=== PATIENT | female | born 1995 | race Caucasian/White ===

== ENCOUNTER 2019-03-14 23:50 | Inpatient (IN) | payer OTHER ==
[2019-03-15] MEDS ORDERED: BUTORPHANOL TARTRATE 2 MG/ML VIAL ONE (01:11)
[2019-03-15] MEDS ORDERED: PROMETHAZINE HCL 25 MG/1 ML VIAL ONE (01:12)
[2019-03-15] MEDS ORDERED: PROMETHAZINE HCL 25 MG/1 ML VIAL IVPUSH ONE (01:15)
[2019-03-15] MEDS ORDERED: BUTORPHANOL TARTRATE 1 MG/ML VIAL IVPUSH ONE (01:15)
[2019-03-15 01:32] LABS: BASO % 0.3 % (0-2.0); EOS % 1.2 % (0-4.5); HEMATOCRIT 32.5 % (32.4-45.2); LYMPH % 19.7 % (8-40); MCH 28.4 pg (25.7-33.7); MCHC 33.8 g/dl (32.0-36.0); MONO % 8.6 % (3.8-10.2); NEUT % 70.2 % (42.8-82.8); RBC 3.87 M/mm3 (3.60-5.2); RDW 14.5 % (11.6-15.6); WHITE BLOOD COUNT 10.3 K/mm3 (4.0-10.0)
[2019-03-15 01:49] LABS: INR 0.92 (0.83-1.09); PROTHROMBIN TIME (PATIENT) 10.8 SEC (9.7-13.0)
[2019-03-15 01:51] LABS: ACTIVATED PTT 29.2 SECONDS (25.2-36.5)
[2019-03-15 02:25] LABS: ANION GAP 9 MMOL/L (8-16); BLOOD UREA NITROGEN 11 mg/dL (7-18); CALCIUM 9.1 mg/dL (8.5-10.1); CHLORIDE 104 mmol/L (98-107); CO2 22 mmol/L (21-32); CREATININE 0.6 mg/dL (0.55-1.3); GLUCOSE,RANDOM 65 mg/dL (74-106); SODIUM 135 mmol/L (136-145)
[2019-03-15 03:00] LABS: MEAN PLT VOLUME 11.7 fl (7.5-11.1)
[2019-03-15 03:01] LABS: PLATELET COUNT 123 K/MM3 (134-434)
[2019-03-15 03:02] LABS: PLATELET ESTIMATE ADEQUATE
[2019-03-15 03:17] VITALS: BMI 25.4
[2019-03-15] MEDS ORDERED: FENTANYL/BUPIVACAINE/NS/PF - PCEA - 50 ML DISP.SYRIN EP ONE ×2 (04:02→08:38)
[2019-03-15] MEDS ORDERED: NALOXONE HCL 0.4 MG/ML VIAL IVPUSH PRN (04:08)
[2019-03-15] MEDS ORDERED: LIDO 2%/EPI 1:200000 PRESRVFRE (20 ML SDVIAL) ONE (04:11)
[2019-03-15] MEDS ORDERED: FENTANYL/BUPIVACAINE/NS/PF - PCEA - 50 ML DISP.SYRIN EP SCH (04:15)
[2019-03-15] MEDS ORDERED: ELECTROLYTE-148 SOLN 1,000 ML IV SCH (04:20)
[2019-03-15] MEDS ORDERED: DEXTROSE 5%-LACTATED RINGERS 1,000 ML IV SCH (05:30)
[2019-03-15] MEDS ORDERED: ALBUTEROL SO4 8 GM HFA INHALER IH PRN ×5 (06:47→06:55)
--- NOTE | 2019-03-15 06:55 | HP ---
Past Medical History - Primary Care Physician PCP:: Larry Jensen - Admission Chief Complaint: 39 weeks, labor History of Present Illness: 23 yo f , 39.3 weeks, c/o contraction, no rom, cx 3 cm 80 vx -2 mi, fhr cat 1, regular contraction History Source: Patient Limitations to Obtaining History: No Limitations - Past Medical History Pulmonary: Yes: Asthma ...: 1 ...Para: 0 ...Term: 0 ...: 0 ...Spon : 0 ...Induced : 0 ...Multiple Gestation: 0 ...LMP: 06/11/18 ... Weeks Gestation by Dates: 39.3 ...EDC by Dates: 03/18/19 - Past Surgical History Hx Myomectomy: No Hx Transabdominal Cerclage: No - Smoking History Smoking history: Never smoked Aproximately how many cigarettes per day: 0 - Alcohol/Substance Use Hx Alcohol Use: No History of Substance Use: reports: None - Social History Usual Living Arrangement: Yes: With Spouse History of Recent Travel: No Home Medications - Allergies Allergies/Adverse Reactions: Allergies Allergy/AdvReac Type Severity Reaction Status Date / Time No Known Allergies Allergy Verified 03/12/19 22:28 - Home Medications Home Medications: Ambulatory Orders Albuterol Sulfate Inhaler - [Ventolin HFA Inhaler -] 1 - 2 inh PO Q4H PRN Vitamins (Sjr) - 1 tab PO DAILY 03/12/19 Review of Systems - Review of Systems Constitutional: reports: No Symptoms Eyes: reports: No Symptoms HENT: reports: No Symptoms Neck: reports: No Symptoms Cardiovascular: reports: No Symptoms Respiratory: reports: No Symptoms Gastrointestinal: reports: No Symptoms Genitourinary: reports: Frequency Breasts: reports: No Symptoms Reported Musculoskeletal: reports: No Symptoms Integumentary: reports: No Symptoms Neurological: reports: No Symptoms Endocrine: reports: No Symptoms Hematology/Lymphatic: reports: No Symptoms Psychiatric: reports: No Symptoms Physical Exam - Maternity Vital Signs: Vital Signs Temperature 98.3 F 03/15/19 06:00 Pulse Rate 75 03/15/19 06:40 Respiratory Rate 18 03/15/19 06:40 Blood Pressure 124/61 03/15/19 06:40 O2 Sat by Pulse Oximetry (%) 100 03/15/19 06:40 Constitutional: Yes: Well Nourished, No Distress, Calm Eyes: Yes: WNL, Conjunctiva Clear, EOM Intact HENT: Yes: WNL, Atraumatic, Normocephalic Neck: Yes: WNL, Supple, Trachea Midline Cardiovascular: Yes: WNL, Regular Rate and Rhythm Breast(s): Yes: WNL - Abdominal Exam/OB Fundal Height: 38 Number of Fetuses: Single Presentation: Vertex Contractions: Yes Regularity: Regular Intensity: Mod/Strong Monitor Mode: External Heart Rate Location: [facility] Category: I Accelerations: Uniform Decelerations: None - Vaginal Exam/OB Vaginal Bleediing: No Presentation: Vertex/Position Station: -2 - Physical Exam Musculoskeletal: Yes: WNL Edema: Yes Edema: LLE: Trace, RLE: Trace Deep Tendon Reflex Grade: Normal +2 Psychiatric: Yes: WNL - Labs Lab Results: CBC, BMP 03/15/19 00:45 03/15/19 00:45 Hemorrhage Risk Assessment - Risk Factors Medium Risk Factors: Yes: None High Risk Factors: Yes: None Risk Score: 1 Risk Level: Medium Risk Problem List - Problems (1) with 39 completed weeks gestation Code(s): Z3A.39 - 39 WEEKS GESTATION OF (2) Labor established Code(s): NZB1985 - Assessment/Plan admit, fhm, , pain management
--- NOTE | 2019-03-15 07:09 | PN ---
Progress Note (short form) - Note Progress Note: cx 7 cm, 80 vx -1 .arom clear fluid, fhr cat 1 tracing , irregular contraction , advised pitocin stimulation, risks and benfit discussed with patient Problem List - Problems (1) with 39 completed weeks gestation Code(s): Z3A.39 - 39 WEEKS GESTATION OF (2) Labor established Code(s): GNC7771 -
[2019-03-15] MEDS ORDERED: OXYTOCIN 30 UNITS in 0.9% NS 30 UNIT/500 ML INFUS.BAG IVPB SCH (07:30)
[2019-03-15] MEDS ORDERED: TUBERCULIN PPD 5 TU/0.1ML SYRINGE (IN PATIENT USE ONLY) ID ONE (08:00)
[2019-03-15] MEDS ORDERED: LIDOCAINE HCL 1% PRESERVATIVE FREE - 30ML VIAL ONE (09:38)
[2019-03-15] MEDS ORDERED: WITCH HAZEL 50% (TUCKS) 40 PAD/JAR PAD TP PRN (10:48)
[2019-03-15] MEDS ORDERED: ACETAMINOPHEN 325 MG TABLET (FP) ONE (10:48)
[2019-03-15] MEDS ORDERED: BISACODYL 10 MG SUPP.RECT RC PRN (10:48)
[2019-03-15] MEDS ORDERED: METHYLERGONOVINE MALEATE 0.2 MG/1 ML AMP IM PRN (10:48)
[2019-03-15] MEDS ORDERED: BENZOCAINE 20% 57 GM BOTTLE TP PRN (10:48)
[2019-03-15] MEDS ORDERED: BENZOCAINE 28 GM HEMORRHOIDAL OINTMENT TP PRN (10:48)
[2019-03-15] MEDS ORDERED: D5W-LR W/ 20 UNITS OXYTOCIN 20 UNIT/1,000 ML INFUS.BAG IV SCH (11:00)
[2019-03-15] MEDS: ACETAMINOPHEN 325 MG TABLET (FP) PO PRN ×4 (11:10→20:54)
[2019-03-15] MEDS: IBUPROFEN 600 MG TABLET (FP) PO PRN ×4 (11:10→20:54)
[2019-03-15] MEDS ORDERED: LABETALOL HCL 200 MG TABLET (FP) PO PRN (13:10)
[2019-03-15] MEDS: FERROUS SO4 325 MG TABLET (FP) PO SCH (21:04)
[2019-03-16] MEDS: ACETAMINOPHEN 325 MG TABLET (FP) PO PRN ×2 (05:52→18:34)
[2019-03-16] MEDS: IBUPROFEN 600 MG TABLET (FP) PO PRN ×2 (05:52→18:35)
[2019-03-16 08:00] LABS: BASO % 0.2 % (0-2.0); EOS % 1.6 % (0-4.5); HEMATOCRIT 29.3 % (32.4-45.2); HEMOGLOBIN 9.8 GM/dL (10.7-15.3); LYMPH % 13.9 % (8-40); MCH 28.3 pg (25.7-33.7); MCHC 33.5 g/dl (32.0-36.0); MEAN CELL VOLUME 84.5 fl (80-96); MEAN PLT VOLUME 11.5 fl (7.5-11.1); MONO % 4.2 % (3.8-10.2); NEUT % 80.1 % (42.8-82.8); PLATELET COUNT 112 K/MM3 (134-434); RBC 3.46 M/mm3 (3.60-5.2); RDW 15.1 % (11.6-15.6); WHITE BLOOD COUNT 10.9 K/mm3 (4.0-10.0)
[2019-03-16] MEDS: PRENATAL VITAMINS W/ FOLIC ACID TABLET (FP) PO SCH (09:04)
[2019-03-16] MEDS: FERROUS SO4 325 MG TABLET (FP) PO SCH ×2 (09:04→21:15)
--- NOTE | 2019-03-16 10:18 | PN ---
Post Progress Note - Subjective Subjective: 23 yo Para 1, status post vaginal delivery, seen and evaluated. Doing well. Post Day: 1 Type of Delivery: Vital Signs: Vital Signs Temperature 98.1 F 03/16/19 09:33 Pulse Rate 83 03/16/19 09:33 Respiratory Rate 20 03/16/19 09:33 Blood Pressure 116/71 03/16/19 09:33 O2 Sat by Pulse Oximetry (%) 100 03/15/19 09:30 Breast Exam: Yes: Soft Uterus: Yes: Fundus Firm Abdomen/GI: Yes: Abdomen soft, Tolerating PO Lochia: Yes: Rubra Lochia, amount: Moderate Extremities: Yes: Calves non-tender Perineum: Yes: Episiotomy (Healing wound) Activity: Ambulating - Labs Labs: CBC WBC 10.9 K/mm3 (4.0-10.0) H 03/16/19 07:00 RBC 3.46 M/mm3 (3.60-5.2) L 03/16/19 07:00 Hgb 9.8 GM/dL (10.7-15.3) L 03/16/19 07:00 Hct 29.3 % (32.4-45.2) L 03/16/19 07:00 MCV 84.5 fl (80-96) 03/16/19 07:00 MCH 28.3 pg (25.7-33.7) 03/16/19 07:00 MCHC 33.5 g/dl (32.0-36.0) 03/16/19 07:00 RDW 15.1 % (11.6-15.6) 03/16/19 07:00 Plt Count 112 K/MM3 (134-434) L 03/16/19 07:00 MPV 11.5 fl (7.5-11.1) H 03/16/19 07:00 Absolute Neuts (auto) 8.7 K/mm3 (1.5-8.0) H 03/16/19 07:00 Neutrophils % 80.1 % (42.8-82.8) 03/16/19 07:00 Lymphocytes % 13.9 % (8-40) D 03/16/19 07:00 Monocytes % 4.2 % (3.8-10.2) 03/16/19 07:00 Eosinophils % 1.6 % (0-4.5) 03/16/19 07:00 Basophils % 0.2 % (0-2.0) 03/16/19 07:00 Nucleated RBC % 0 % (0-0) 03/16/19 07:00 Platelet Estimate Adequate 03/15/19 00:45 Platelet Comment Large platelets 03/15/19 00:45 Problem List - Problems (1) Status post normal vaginal delivery Code(s): BRO8427 - Assessment/Plan Status post vaginal delivery Stable Continue routine care
--- NOTE | 2019-03-16 10:58 | PN ---
Post Progress Note - Subjective Subjective: Patient without acute complaints. Reports tolerating oral intake without nausea or vomiting. Ambulating without dizziness. Denies fevers or chills. Pain well controlled with oral pain medication. Desires to breastfeed. Passing flatus. Post Day: 1 Type of Delivery: Vital Signs: Vital Signs Temperature 98.1 F 03/16/19 09:33 Pulse Rate 83 03/16/19 09:33 Respiratory Rate 20 03/16/19 09:33 Blood Pressure 116/71 03/16/19 09:33 O2 Sat by Pulse Oximetry (%) 100 03/15/19 09:30 Breast Exam: Yes: Engorged Uterus: Yes: Fundus below umbilicus Abdomen/GI: Yes: Abdomen soft, Tender, Passing flatus, Tolerating PO Lochia: Yes: Serosa Lochia, amount: Small Extremities: Yes: Calves non-tender, Edema (trace) Activity: Ambulating - Labs Labs: CBC WBC 10.9 K/mm3 (4.0-10.0) H 03/16/19 07:00 RBC 3.46 M/mm3 (3.60-5.2) L 03/16/19 07:00 Hgb 9.8 GM/dL (10.7-15.3) L 03/16/19 07:00 Hct 29.3 % (32.4-45.2) L 03/16/19 07:00 MCV 84.5 fl (80-96) 03/16/19 07:00 MCH 28.3 pg (25.7-33.7) 03/16/19 07:00 MCHC 33.5 g/dl (32.0-36.0) 03/16/19 07:00 RDW 15.1 % (11.6-15.6) 03/16/19 07:00 Plt Count 112 K/MM3 (134-434) L 03/16/19 07:00 MPV 11.5 fl (7.5-11.1) H 03/16/19 07:00 Absolute Neuts (auto) 8.7 K/mm3 (1.5-8.0) H 03/16/19 07:00 Neutrophils % 80.1 % (42.8-82.8) 03/16/19 07:00 Lymphocytes % 13.9 % (8-40) D 03/16/19 07:00 Monocytes % 4.2 % (3.8-10.2) 03/16/19 07:00 Eosinophils % 1.6 % (0-4.5) 03/16/19 07:00 Basophils % 0.2 % (0-2.0) 03/16/19 07:00 Nucleated RBC % 0 % (0-0) 03/16/19 07:00 Platelet Estimate Adequate 03/15/19 00:45 Platelet Comment Large platelets 03/15/19 00:45 Assessment/Plan 23 yo PPD # 1 s/p , afebrile, vital signs stable, doing well 1. Continue routine care. 2. AM CBC with mild asytmptomatic anemia. 3. Rh positive status, no rhogam indicated. 4. Encourage ambulation 5. Continue oral pain medication 6. Anticipate discharge home day #2
[2019-03-16] MEDS ORDERED: SENNOSIDES/DOCUSATE COMBO (SENNA PLUS) TABLET (UD) PO PRN (22:00)
[2019-03-17] MEDS: ACETAMINOPHEN 325 MG TABLET (FP) PO PRN (05:23)
[2019-03-17] MEDS: IBUPROFEN 600 MG TABLET (FP) PO PRN (05:23)
--- NOTE | 2019-03-17 07:54 | PN ---
Post Progress Note - Subjective Subjective: Patient without acute complaints. Reports tolerating oral intake without nausea or vomiting. Ambulating without dizziness. Denies fevers or chills. Pain well controlled with oral pain medication. without difficulty. Passing flatus. Type of Delivery: Vital Signs: Vital Signs Temperature 98.0 F 03/16/19 20:18 Pulse Rate 93 H 03/16/19 20:18 Respiratory Rate 20 03/16/19 20:18 Blood Pressure 133/74 03/16/19 20:18 O2 Sat by Pulse Oximetry (%) 100 03/15/19 09:30 Breast Exam: Yes: Soft Uterus: Yes: Fundus Firm, Fundus below umbilicus Abdomen/GI: Yes: Abdomen soft, Passing flatus, Tolerating PO. No: Abdominal Distention, Tender Lochia: Yes: Serosa Lochia, amount: Small Extremities: Yes: Calves non-tender. No: Edema Activity: Ambulating - Labs Labs: CBC WBC 10.9 K/mm3 (4.0-10.0) H 03/16/19 07:00 RBC 3.46 M/mm3 (3.60-5.2) L 03/16/19 07:00 Hgb 9.8 GM/dL (10.7-15.3) L 03/16/19 07:00 Hct 29.3 % (32.4-45.2) L 03/16/19 07:00 MCV 84.5 fl (80-96) 03/16/19 07:00 MCH 28.3 pg (25.7-33.7) 03/16/19 07:00 MCHC 33.5 g/dl (32.0-36.0) 03/16/19 07:00 RDW 15.1 % (11.6-15.6) 03/16/19 07:00 Plt Count 112 K/MM3 (134-434) L 03/16/19 07:00 MPV 11.5 fl (7.5-11.1) H 03/16/19 07:00 Absolute Neuts (auto) 8.7 K/mm3 (1.5-8.0) H 03/16/19 07:00 Neutrophils % 80.1 % (42.8-82.8) 03/16/19 07:00 Lymphocytes % 13.9 % (8-40) D 03/16/19 07:00 Monocytes % 4.2 % (3.8-10.2) 03/16/19 07:00 Eosinophils % 1.6 % (0-4.5) 03/16/19 07:00 Basophils % 0.2 % (0-2.0) 03/16/19 07:00 Nucleated RBC % 0 % (0-0) 03/16/19 07:00 Platelet Estimate Adequate 03/15/19 00:45 Platelet Comment Large platelets 03/15/19 00:45 Assessment/Plan 23 yo PPD # 1 s/p , afebrile, vital signs stable, doing well 1. Patient stable for discharge home today. 2. Patient encouraged to contact MD for: - Severe pain not controlled by oral pain medication - Fevers or chills - Nausea or vomiting, intolerance of oral intake 3. Patient to follow up in office in 4-6 weeks for visit
--- NOTE | 2019-03-17 07:55 | DS ---
Physical Exam-RV TECHNICIAN Vital Signs: Vital Signs Temperature 98.0 F 03/16/19 20:18 Pulse Rate 93 H 03/16/19 20:18 Respiratory Rate 20 03/16/19 20:18 Blood Pressure 133/74 03/16/19 20:18 O2 Sat by Pulse Oximetry (%) 100 03/15/19 09:30 Labs: CBC, BMP 03/16/19 07:00 03/15/19 00:45 Delivery - Delivery Type of Anesthesia: Local, Epidural Episiotomy/Laceration: Left Mediolateral EBL (cc): 300 Delivery, Single - Stages of Labor Date 1st Stage Initiatied: 03/14/19 Time 1st Stage Initiated: 23:30 Date 2nd Stage Initiated: 03/15/19 Time 2nd Stage Initiated: 09:10 Date of Delivery: 03/15/19 Time of Delivery: 10:28 Time Placenta Delivered: 10:40 - Condition of Infant Mixing Picker Tender/Specialty Cook Present: No Gender: Female Weight: 6 lb 4 oz Position: OA Total Hours ROM (Hrs/Mins): 3hrs 18 min - 1 Minute Total Score: 9 - [place] Feeding Plan Initial Plan: Elected not to breastfeed exclusively throughout hospitalization Discharge Summary Reason For Visit: LABOR ADMIT Current Active Problems Labor established (Acute) with 39 completed weeks gestation (Acute) Status post normal vaginal delivery (Acute) Procedures: Principal: Vaginal delivery Hospital Course: Patient admitted in labor, delivered viable female via PPD#1 asymptomatic anemia Fulfilled all criteria for discharge home PPD#2 Condition: Good - Instructions Diet, Activity, Other Instructions: Physical activity Resume your normal everyday activity as tolerated no heavy lifting or exercise until seen by your surgeon. You may walk unlimited huber of and climb stairs. You may resume driving the car when you feel safe and comfortable behind the wheel. No sexual activity as instructed. Diet There are no dietary restrictions. Eat healthy, high-fiber foods. Drink 6 to 8 glasses of liquid each day. This will assist in keeping your bowels are regular. Pain management You may take Tylenol or acetaminophen or Ibuprofen (for example, Motrin, Advil etc.) from my pain prescription medication is ordered should be taken as prescribed for moderate to severe pain. Call MD for any of the following: Severe pain not relieved by medication Fever of 101 or higher Excessive bleeding or drainage on dressing Inability to urinate Referrals: Mary Ceballos MD [Staff Physician] - Disposition: HOME - Home Medications Comprehensive Discharge Medication List: Ambulatory Orders Albuterol Sulfate Inhaler - [Ventolin HFA Inhaler -] 1 - 2 inh PO Q4H PRN Vitamins (Sjr) - 1 tab PO DAILY 03/12/19
[2019-03-17 08:45] VITALS: BP 127/70; PULSE 78; TEMP 97.8
[2019-03-17] MEDS: PRENATAL VITAMINS W/ FOLIC ACID TABLET (FP) PO SCH (09:07)
[2019-03-17] MEDS: FERROUS SO4 325 MG TABLET (FP) PO SCH (09:07)
== END 2019-03-17 11:40 | disposition home or self-care (01) | DRG 807 ==
LOC: JDEL 23:50 → JLDR 03-15 → J3W 03-15 12:58
PROVIDERS: ADMIT Obstetrics & Gynecology; ATTEND Obstetrics & Gynecology
PROC: 10E0XZZ Delivery of Products of Conception, External Approach (ICD-10-PCS; principal; 2019-03-15)
DX: O80 Encounter for full-term uncomplicated delivery (principal); Z37.0 Single live birth; Z3A.39 39 weeks gestation of pregnancy
CPT/HCPCS: 36415; 59409; 80048; 85025; 85610; 85730; 86593; 86850; 86900; 86901

== ENCOUNTER 2022-02-24 08:53 | Day surgery (SDC) | payer OTHER ==
[~2022-02-24 08:53] MED LIST: BUPIVACAINE HCL/PF 0.5% (5 MG/ML) 30 ML VIAL IJ ONE; ceFAZolin SODIUM 1 GM VIAL IVPB ONE
[2022-02-24] MEDS ORDERED: morphine CARPU-JECT 4 MG/1 ML DISP.SYRIN IVPUSH ONE ×2 (09:45→12:15)
[2022-02-24] MEDS ORDERED: SODIUM CHLORIDE 0.9% 500 ML INFUS.BAG IV ONE (09:45)
[2022-02-24] MEDS ORDERED: ONDANSETRON 4 MG/2 ML VIAL IVPUSH ONE ×2 (09:46→14:12)
[2022-02-24] MEDS ORDERED: ONDANSETRON 4 MG/2 ML VIAL ONE ×2 (09:54→14:35)
[2022-02-24] MEDS ORDERED: morphine SULFATE 4 MG/ML VIAL ONE ×2 (09:54→12:23)
[2022-02-24 10:25] LABS: BASO % 1.2 % (0-2.0); EOS % 3.2 % (0-4.5); HEMATOCRIT 42.1 % (32.4-45.2); HEMOGLOBIN 14.3 GM/dL (10.7-15.3); LYMPH % 15.5 % (8-40); MCH 28.9 pg (25.7-33.7); MCHC 33.8 g/dl (32.0-36.0); MEAN CELL VOLUME 85.4 fl (80-96); MEAN PLT VOLUME 10.7 fl (7.5-11.1); MONO % 7.6 % (3.8-10.2); NEUT % 72.5 % (42.8-82.8); PLATELET COUNT 170 10^3/uL (134-434); RBC 4.93 M/mm3 (3.60-5.2); RDW 14.4 % (11.6-15.6); WHITE BLOOD COUNT 5.3 K/mm3 (4.0-10.0)
[2022-02-24 10:29] LABS: EPI CELLS >36 /uL (0-25.1); HCG,QUALITATIVE URINE Negative; HYALINE CASTS 14 /uL (0-3.1); URINE APPEARANCE CLOUDY; URINE BACTERIA 1546 /uL (0-1359); URINE BILIRUBIN NEGATIVE (NEGATIVE); URINE COLOR YELLOW; URINE GLUCOSE (UA) NEGATIVE (NEGATIVE); URINE KETONE TRACE (NEGATIVE); URINE LEUK ESTERASE 2+ (NEGATIVE); URINE NITRITE NEGATIVE (NEGATIVE); URINE PROTEIN 2+ (NEGATIVE); URINE RBC 102 /uL (0-23.9); URINE WBC 443 /uL (0-25.8)
[2022-02-24 10:55] LABS: CALCIUM 9.3 mg/dL (8.5-10.1)
[2022-02-24 10:56] LABS: ALBUMIN 4.4 g/dl (3.4-5.0); BLOOD UREA NITROGEN 12.6 mg/dL (7-18)
[2022-02-24 10:59] LABS: CREATININE 0.7 mg/dL (0.55-1.3)
[2022-02-24 11:00] LABS: BILIRUBIN,TOTAL 0.3 mg/dL (0.2-1); TOT PROT 7.9 g/dl (6.4-8.2)
[2022-02-24 12:10] LABS: CALCIUM 8.4 mg/dL (8.5-10.1)
[2022-02-24 12:11] LABS: ALBUMIN 4.2 g/dl (3.4-5.0); BLOOD UREA NITROGEN 11.3 mg/dL (7-18)
[2022-02-24 12:14] LABS: CREATININE 0.6 mg/dL (0.55-1.3)
[2022-02-24 12:15] LABS: TOT PROT 7.2 g/dl (6.4-8.2)
[2022-02-24 12:16] LABS: BILIRUBIN,TOTAL 0.4 mg/dL (0.2-1)
[2022-02-24] MEDS ORDERED: CEFTRIAXONE 1 GM in DEXTROSE 5%-WATER - 100 ML IVPB ONE (12:16)
[2022-02-24] MEDS ORDERED: CEFTRIAXONE 1 GM/50 ML BAG ONE (12:23)
[2022-02-24] MEDS ORDERED: ACETAMINOPHEN 1000 MG/100 ML BAG IVPB ONE (14:13)
[2022-02-24] MEDS ORDERED: ACETAMINOPHEN INJECTION 100 ML IVPB ONE (14:35)
[2022-02-24] MEDS ORDERED: ONDANSETRON 4 MG/2 ML VIAL IVPUSH PRN ×2 (15:08→17:25)
[2022-02-24] MEDS ORDERED: PROMETHAZINE HCL 25 MG/1 ML VIAL IVPUSH PRN ×2 (15:08→17:25)
[2022-02-24] MEDS ORDERED: MIDAZOLAM HCL 2 MG/2 ML SINGLE DOSE VIAL ONE (15:11)
[2022-02-24] MEDS ORDERED: PROPOFOL 20 ML ONE (15:11)
[2022-02-24] MEDS ORDERED: LIDOCAINE HCL/PF 2% SDV 5ML VIAL ONE (15:12)
[2022-02-24] MEDS ORDERED: LACTATED RINGERS SOLUTION 1,000 ML IV SCH (15:15)
[2022-02-24] MEDS ORDERED: ROCURONIUM BROMIDE 50 MG/5 ML SYRINGE ONE (15:16)
[2022-02-24] MEDS ORDERED: DEXAMETHASONE SOD PHOSPHATE 4 MG/1 ML VIAL ONE (16:20)
[2022-02-24] MEDS ORDERED: ALBUTEROL SO4 HFA INHALER IH PRN ×2 (16:45→17:19)
[2022-02-24] MEDS ORDERED: NEOSTIGMINE METHYLSULFATE 0.5 MG/ML - 10 ML MDV ONE (17:00)
[2022-02-24] MEDS ORDERED: GLYCOPYRROLATE 0.2 MG/1 ML VIAL ONE (17:00)
[2022-02-24] MEDS ORDERED: IBUPROFEN 800 MG/8 ML IJ IVPB ONE ×2 (17:42→19:15)
[2022-02-24 20:55] VITALS: BMI 24.7
[2022-02-24] MEDS: oxyCODONE HCL 5 MG TABLET PO PRN (21:59)
[2022-02-24] MEDS: LACTATED RINGERS SOLUTION 1,000 ML IV SCH (22:03)
[2022-02-24] MEDS: ACETAMINOPHEN 500 MG TABLET (FP) PO PRN (22:40)
[2022-02-25] MEDS ORDERED: IBUPROFEN 800 MG/8 ML IJ IVPB PRN (00:15)
[2022-02-25] MEDS: oxyCODONE HCL 5 MG TABLET PO PRN ×2 (03:46→09:39)
[2022-02-25] MEDS: ACETAMINOPHEN 500 MG TABLET (FP) PO PRN ×2 (06:13→13:03)
[2022-02-25] MEDS: LACTATED RINGERS SOLUTION 1,000 ML IV SCH (06:14)
[2022-02-25 09:38] LABS: BASO % 0.3 % (0-2.0); EOS % 0.5 % (0-4.5); HEMATOCRIT 35.9 % (32.4-45.2); HEMOGLOBIN 12.3 GM/dL (10.7-15.3); LYMPH % 13.7 % (8-40); MCH 29.2 pg (25.7-33.7); MCHC 34.4 g/dl (32.0-36.0); MEAN CELL VOLUME 84.9 fl (80-96); MEAN PLT VOLUME 10.5 fl (7.5-11.1); MONO % 5.5 % (3.8-10.2); PLATELET COUNT 157 10^3/uL (134-434); RBC 4.23 M/mm3 (3.60-5.2); RDW 14.3 % (11.6-15.6); WHITE BLOOD COUNT 6.1 K/mm3 (4.0-10.0)
[2022-02-25] MEDS ORDERED: FAMOTIDINE 20 MG TABLET PO SCH ×2 (10:00)
[2022-02-25 10:05] LABS: ALBUMIN 3.6 g/dl (3.4-5.0); BLOOD UREA NITROGEN 5.5 mg/dL (7-18); CALCIUM 8.5 mg/dL (8.5-10.1)
[2022-02-25 10:08] LABS: CREATININE 0.8 mg/dL (0.55-1.3)
[2022-02-25 10:10] LABS: BILIRUBIN,TOTAL 0.7 mg/dL (0.2-1)
[2022-02-25 10:11] LABS: TOT PROT 6.7 g/dl (6.4-8.2)
[2022-02-25 13:51] VITALS: BP 105/61; PULSE 76; TEMP 97.7
== END 2022-02-25 17:25 | disposition home or self-care (01) ==
LOC: JER 08:53 → JASUSAT 14:57 → J6S 19:45 → JASUSAT 02-25 17:25
PROVIDERS: ATTEND Surgery
PROC: 0FT44ZZ Resection of Gallbladder, Percutaneous Endoscopic Approach (ICD-10-PCS; principal; 2022-02-24 16:08)
DX: K80.00 Calculus of gallbladder with acute cholecystitis without obstruction (principal)
CPT/HCPCS: 36415; 74176-TC; 76705-TC; 80053; 81003; 83690; 84703; 85025; 87086; 88304-TC; 94760; 99285-25; C9803-CS; U0003; U0005